=== PATIENT | male | born 1955 | race Caucasian/White ===

== ENCOUNTER 2019-12-29 15:38 | Emergency (ER) | payer MEDICARE, OTHER, SELFPAY ==
[2019-12-29 15:52] VITALS: BP 128/75; PULSE 79; RESP 16; TEMP 37.1; O2SAT 97
--- NOTE | 2019-12-29 15:57 | ED.SKABFB ---
HPI - Skin/Abscess/Foreign Bdy General Chief complaint: Skin/Abscess/Foreign Body Stated complaint: Cyst on back Time Seen by Provider: 12/29/19 15:55 Source: patient and RN notes reviewed Mode of arrival: ambulatory Limitations: no limitations History of Present Illness HPI narrative: Patient presents today with an infected cyst to his back x1 week. He has been on Augmentin since 12/23/2019, but states symptoms have continued to worsen. Currently rates his pain 3/10. Pain increases when he moves or lies supine. He has tried no medication for pain prior to arrival. He does report history of infected cyst in the past. Denies history of MRSA Related Data Home Medications Medication Instructions Recorded Confirmed C,E,zinc,copper 16-jjrdy2n-cts 1 cap PO DAILY 12/29/19 12/29/19 [Ocuvite Adult 50 Plus] amoxicillin-pot clavulanate 1 tablet PO BID 12/29/19 12/29/19 aspirin [Adult Low Dose Aspirin] 81 mg PO DAILY 12/29/19 12/29/19 bimatoprost [Lumigan] 0.01 % OPHTHALMIC (EYE) DIRECTED 12/29/19 12/29/19 dorzolamide 1 drp OPHTHALMIC (EYE) DAILY 12/29/19 12/29/19 ezetimibe 10 mg PO DAILY 12/29/19 12/29/19 jtgchfbeejb-fgxydblcz-tqlzcghc 1 inh INHALATION DIRECTED 12/29/19 12/29/19 [Trelegy Ellipta] furosemide 40 mg PO DAILY 12/29/19 12/29/19 lisinopril 20 mg PO DAILY 12/29/19 12/29/19 tbiceitr-amu-QY-lycopen-lutein 1 tablet PO DAILY 12/29/19 12/29/19 [Centrum Silver] omega 8-xle-ryr-fish oil [Fish Oil] 1 cap PO BID 12/29/19 12/29/19 omeprazole 20 mg PO DAILY 12/29/19 12/29/19 tamsulosin 0.4 mg PO DIRECTED 12/29/19 12/29/19 Allergies Allergy/AdvReac Type Severity Reaction Status Date / Time No Known Allergies Allergy Unverified 03/04/19 08:49 Review of Systems Review of Systems: Narrative: CONSTITUTIONAL: Denies body aches, fever, chills, or sweats. EYES: Denies visual changes, redness, or discharge. ENT: Denies rhinorrhea, congestion, sore throat, or otalgia. CARDIOVASCULAR: Denies chest pain, palpitations, or edema. RESPIRATORY: Denies cough or dyspnea. GASTROINTESTINAL: Denies abdominal pain, nausea, vomiting, or diarrhea. GENITOURINARY: Denies dysuria or hematuria. SKIN: Denies rash, itching. + Cyst to back. MUSCULOSKELETAL: Denies back pain, joint pain, or myalgia. NEUROLOGIC: Denies headache, numbness, tingling, or weakness. PSYCH: Denies depression or anxiety. [facility] Past Medical History Medical History (Updated 12/29/19 @ 16:17 by Mayte Fuentes, [employer]IVE [employer], ) Hypertension Comments At time of signature, I have reviewed and agree with nursing past medical, surgical, social and family history unless otherwise noted. Please see nursing chart for further information. There is no relevant family history pertinent to the presenting complaint Exam Narrative: Exam Narrative: GENERAL: Well-appearing, well-nourished, and in no acute distress. HEAD: Normocephalic, atraumatic. EYES: EOMI. No redness or drainage. Conjunctivae normal. ENT: Mucous membranes pink and moist. NECK: Normal AROM. . CHEST: No respiratory distress. EXTREMITIES: Normal range of motion. No edema. SKIN: Warm, dry, no rash. Capillary refill normal. Normal skin turgor. ~4cm round area of erythema and induration with central fluctuance. Tender to palpation. NEURO: No focal deficits. Alert and oriented x3. Gait steady. PSYCH: Normal affect. No signs of depression or anxiety. Course Vital Signs Vital signs: Vital Signs Temperature 98.7 F 12/29/19 15:52 Pulse Rate 79 12/29/19 15:52 Respiratory Rate 16 12/29/19 15:52 Blood Pressure 128/75 12/29/19 15:52 Pulse Oximetry 97 12/29/19 15:52 Temperature 98.7 F 12/29/19 15:52 Pulse Rate 79 12/29/19 15:52 Respiratory Rate 16 12/29/19 15:52 Blood Pressure 128/75 12/29/19 15:52 Pulse Oximetry 97 12/29/19 15:52 Reviewed. Pt has been instructed to follow up with his PCP regarding his elevated blood pressure today. Procedures Abscess I/D back:
== END 2019-12-29 16:19 | disposition home or self-care (01) ==
PROVIDERS: Emergency Provider Nurse Practitioner; PCP Family Medicine Adolescent Medicine
DX: L02.212 Cutaneous abscess of back [any part, except buttock and flank] (principal); I10 Essential (primary) hypertension
CPT/HCPCS: 10060; 99212; G0463

== ENCOUNTER → 2020-07-28 11:57 | Outpatient (CLI) | payer MEDICARE, OTHER, SELFPAY ==
--- NOTE | ~2020-07-28 | MR_ITS ---
EXAMINATION: MR brain/brain stem wo con DATE: 07/28/2020 13:04 INDICATION: Loss of balance. TECHNIQUE: Magnetic resonance imaging (MRI) of the brain and brainstem was performed without intraven ous contrast. Sequences included sagittal and axial T1-weighted FSE, axial diffusion-weighted FS EPI, axial T2*-weighted GRE, axial T2-weighted FLAIR Propeller, and axial T2-weighted Propeller. Apparent diffusion coefficient (ADC) maps were created. COMPARISON: None. FINDINGS: There are scattered areas of nonspecific increased T2-weighted signal intensity in the cere bral white matter, which is within normal limits for the patient's age. There is no intracranial hemo rrhage, acute infarction, or abnormal intracranial mass lesion. The ventricles are normal in size. Th e orbits are normal. There is mild mucosal thickening in the paranasal sinuses. The mastoid air cells are normal. IMPRESSION: 1. Normal aging brain. Reviewed, dictated and finalized at location B. TRONIC CONSOLE DISPLAY OPERATOR IMPRESSION: 1. Normal aging brain.
== END ==
PROVIDERS: PCP Family Medicine Adolescent Medicine; Visit Provider Physician Assistant
DX: R26.9 Unspecified abnormalities of gait and mobility (principal)
CPT/HCPCS: 70551

== ENCOUNTER 2022-03-23 12:52 | Emergency (ER) | payer MEDICARE, OTHER, SELFPAY ==
[2022-03-23 12:59] VITALS: BP 132/75; PULSE 66; RESP 20; TEMP 36.9; O2SAT 99
--- NOTE | 2022-03-23 13:10 | ED.UPPEXIN ---
HPI - Extremity Injury (Upper) General Chief Complaint: Extremity Problem,Nontraumatic Stated Complaint: Finger Lt Hand Time Seen by Provider: 03/23/22 13:14 History of Present Illness HPI narrative: Khoa Coffey is a 66 yo male with PMH of gl;aucoma, COPD, hyperlipidemia,HTN, comes to [facility] with what he believes to be a splinter in his palmar side of his second finger left hand; I will erythema no fluctuance no obvious infection Related Data Home Medications Medication Instructions Recorded Confirmed aspirin 81 mg tablet,delayed 81 mg PO DAILY 12/29/19 03/23/22 release (Adult Low Dose Aspirin) bimatoprost 0.01 % eye drops 0.01 % ophthalmic (eye) DIRECTED 12/29/19 03/23/22 (Lumigan) dorzolamide 2 % eye drops 1 drp ophthalmic (eye) DAILY 12/29/19 03/23/22 wanzhqys-fhr-yjxmy acid 0.4 1 tablet PO DAILY 12/29/19 03/23/22 mg-lycopene 300 mcg-lutein 250 mcg tablet (Centrum Silver) omega 6-yoa-fok-fish oil 1,000 mg 1 cap PO BID 12/29/19 03/23/22 (120 mg-180 mg) capsule (Fish Oil) tamsulosin 0.4 mg capsule 0.4 mg PO DIRECTED 12/29/19 03/23/22 vit C,E,zinc,copper-vucfr5r 250 1 cap PO DAILY 12/29/19 03/23/22 mg-lutein 5 mg-zeaxanthin 1 mg capsule (Ocuvite Adult 50 Plus) albuterol sulfate 90 mcg/actuation 1 puff inhalation Q4H PRN 01/19/22 03/23/22 aerosol inhaler (ProAir HFA) Shortness Of Breath Or Wheezing fluticasone fur. 100 mcg-umeclid 2 inh inhalation DAILY 03/23/22 03/23/22 62.5 mcg-vilant 25 mcg inhalat.powder (Trelegy Ellipta) Allergies Allergy/AdvReac Type Severity Reaction Status Date / Time No Known Allergies Allergy Verified 03/23/22 13:04 Review of Systems Review of Systems: CONSTITUTIONAL: Denies fever, chills, sweats. EYES: Denies visual changes, redness, discharge. ENT: Denies rhinorrhea, congestion, sore throat, otalgia. CARDIOVASCULAR: Denies chest pain, palpitations, edema. RESPIRATORY: Denies dyspnea, wheezing, cough GASTROINTESTINAL: Denies abdominal pain, nausea, vomiting, diarrhea. GENITOURINARY: Denies dysuria, hematuria, abnormal discharge SKIN: Denies rash or itching. NEUROLOGIC: Denies numbness, or focal weakness. PSYCHIATRIC: Denies anxiety or depression Small foreign object in second left finger, he feels a something is sticking him when he bends his finger PMFSH Past Medical History Medical History Essential (primary) hypertension Gastro-esophageal reflux disease without esophagitis Glaucoma HTN (hypertension) Mixed hyperlipidemia Surgical History Surgical History History of lumbar surgery (~2013) L4-5 decompression and fusion 2013 History of shoulder surgery (2000) 2001, Left arthroscopy and acromioplasty Family History Family History Father Acute myocardial infarction Mother Acute myocardial infarction Sibling Diabetes mellitus Sibling Diabetes mellitus Sibling Diabetes mellitus COPD (chronic obstructive pulmonary disease) Social History Social History Smoking status: Former smoker Tobacco type: cigarettes Second hand tobacco smoke exposure: No Smoking end date: 08/21/15 Alcohol intake: never Substance use: never Substance use type: does not use Gender identity (if verbalized by the patient): Male Sexual Orientation (if Verbalized by the Patient): Straight or Heterosexual Spiritual care concerns: No Agree to blood products: Yes Comments At time of signature, I agree with nursing past medical, surgical, social and family history. There is no relevant family history pertinent to the presenting complaint. Exam Narrative: GENERAL: This is a well-nourished, well-developed patient, in mild distress. HEAD: normocephalic, atraumatic. EYES: PERRL. Sclera clear/whit
[2022-03-23] MEDS: TETANUS,DIPHTHERIA,AC PERTUSSIS ADULT (0.5 ML) BOOSTRIX IM (13:44)
== END 2022-03-23 13:48 | disposition home or self-care (01) ==
PROVIDERS: Emergency Provider Nurse Practitioner; PCP Family Medicine Adolescent Medicine
DX: S61.241A Puncture wound with foreign body of left index finger without damage to nail, initial encounter (principal); W45.8XXA Other foreign body or object entering through skin, initial encounter; Z23 Encounter for immunization; I10 Essential (primary) hypertension; K21.9 Gastro-esophageal reflux disease without esophagitis; H40.9 Unspecified glaucoma; E78.2 Mixed hyperlipidemia; Z87.891 Personal history of nicotine dependence; J44.9 Chronic obstructive pulmonary disease, unspecified
CPT/HCPCS: 90471; 90715; 99213; G0463

== ENCOUNTER 2022-08-01 14:34 | Emergency (ER) | payer MEDICARE, OTHER, SELFPAY ==
[2022-08-01 14:47] VITALS: BP 130/77; PULSE 82; RESP 18; TEMP 36.1; O2SAT 99
--- NOTE | 2022-08-01 15:07 | ED.GENADULT ---
HPI - General Adult General Chief complaint: Upper Respiratory Infection Stated complaint: Congestion,Cough,Headache History of Present Illness HPI narrative: 67 y/o male. PMHx HTN, GERD, Dyslipidemia. Presents to [facility] today with acute complaints of increased nasal congestion, purulent nasal discharge, as well as maxillary facial pressure for the past 72 hours. No fevers. No CAZARES, neck pain. No chest pain, cough, dyspnea, edema. He denies known ill contacts. Related Data Home Medications Medication Instructions Recorded Confirmed aspirin 81 mg tablet,delayed 81 mg PO DAILY 12/29/19 08/01/22 release (Adult Low Dose Aspirin) bimatoprost 0.01 % eye drops 0.01 % ophthalmic (eye) DIRECTED 12/29/19 08/01/22 (Lumigan) dorzolamide 2 % eye drops 1 drp ophthalmic (eye) DAILY 12/29/19 08/01/22 dradbvmg-bnu-xzlmw acid 0.4 1 tablet PO DAILY 12/29/19 08/01/22 mg-lycopene 300 mcg-lutein 250 mcg tablet (Centrum Silver) omega 2-afy-fyb-fish oil 1,000 mg 1 cap PO BID 12/29/19 08/01/22 (120 mg-180 mg) capsule (Fish Oil) vit C,E,zinc,copper-dhacx2f 250 1 cap PO DAILY 12/29/19 08/01/22 mg-lutein 5 mg-zeaxanthin 1 mg capsule (Ocuvite Adult 50 Plus) albuterol sulfate 90 mcg/actuation 1 puff inhalation Q4H PRN 01/19/22 08/01/22 aerosol inhaler (ProAir HFA) Shortness Of Breath Or Wheezing fluticasone fur. 100 mcg-umeclid 2 inh inhalation DAILY 03/23/22 08/01/22 62.5 mcg-vilant 25 mcg inhalat.powder (Trelegy Ellipta) Allergies Allergy/AdvReac Type Severity Reaction Status Date / Time No Known Allergies Allergy Verified 08/01/22 14:40 Review of Systems Review of Systems: CONSTITUTIONAL: Denies fever, chills, sweats. EYES: Denies visual changes, redness, discharge. ENT: Positive rhinorrhea, congestion. No sore throat, otalgia. CARDIOVASCULAR: Denies chest pain, palpitations, edema. RESPIRATORY: Denies dyspnea, wheezing, cough GASTROINTESTINAL: Denies abdominal pain, nausea, vomiting, diarrhea. GENITOURINARY: Denies dysuria, hematuria, abnormal discharge SKIN: Denies rash or itching. MUSCULOSKELETAL: Denies acute back pain, joint pain, or myalgia. NEUROLOGIC: Denies numbness, or focal weakness. PSYCHIATRIC: Denies anxiety or depression. [facility] Past Medical History Medical History Essential (primary) hypertension Gastro-esophageal reflux disease without esophagitis Glaucoma HTN (hypertension) Mixed hyperlipidemia Surgical History Surgical History History of lumbar surgery (~2013) L4-5 decompression and fusion 2013 History of shoulder surgery (2000) 2001, Left arthroscopy and acromioplasty Family History Family History Father Acute myocardial infarction Mother Acute myocardial infarction Sibling Diabetes mellitus Sibling Diabetes mellitus Sibling Diabetes mellitus COPD (chronic obstructive pulmonary disease) Social History Social History Smoking status: Former smoker Tobacco type: cigarettes Second hand tobacco smoke exposure: No Smoking end date: 08/21/15 Alcohol intake: never Substance use: never Substance use type: does not use Gender identity (if verbalized by the patient): Male Sexual Orientation (if Verbalized by the Patient): Straight or Heterosexual Spiritual care concerns: No Agree to blood products: Yes Exam Narrative: GENERAL: This is a well-nourished, well-developed adult, in no apparent distress. HEAD: normocephalic, atraumatic. EYES: PERRL. Sclera clear/white. EARS: External ears normal, auditory canals clear and without drainage, TMs normal. NOSE: External nose normal. Positive Rhinorrhea, thick nasal congestion. No obstruction. THROAT: Mucous membranes moist, posterior ph
== END 2022-08-01 15:05 | disposition home or self-care (01) ==
PROVIDERS: Emergency Provider Nurse Practitioner Adult Health; PCP Family Medicine Adolescent Medicine
DX: J01.90 Acute sinusitis, unspecified (principal); I10 Essential (primary) hypertension; E78.2 Mixed hyperlipidemia; Z79.82 Long term (current) use of aspirin; Z87.891 Personal history of nicotine dependence
CPT/HCPCS: 99213; G0463

== ENCOUNTER 2022-10-06 08:53 | Outpatient (CLI) | payer MEDICARE, OTHER, SELFPAY ==
--- NOTE | 2022-10-06 09:28 | ECG_ITS ---
Measurements Intervals [place] Rate: 56 P: 5 KS: 161 QRS: 41 QRSD: 109 T: 39 QT: 404 QTc: 392 Interpretive Statements SINUS BRADYCARDIA NO PREVIOUS ECG AVAILABLE FOR COMPARISON Electronically Signed On 10-06-2022 14:55:23 INTERVENTIONAL TECH by Chas Brewer M.D.
[2022-10-06 10:27] LABS: Anion Gap 6 mmol/L (8-16); Blood Urea Nitrogen 26 mg/dL (9-20); Calcium 8.9 mg/dL (8.4-10.2); Carbon Dioxide 29 mmol/L (22-30); Chloride 101 mmol/L (98-107); Estimated Glomerular Filt Rate > 60; Glucose 107 mg/dL (65-110); Potassium 4.1 mmol/L (3.4-5.0); Sodium 136 mmol/L (137-145)
== END 2022-10-06 08:54 | disposition home or self-care (01) ==
PROVIDERS: PCP Family Medicine Adolescent Medicine; Visit Provider Anesthesiology
DX: Z01.818 Encounter for other preprocedural examination (principal)
CPT/HCPCS: 36415; 80048; 93005

== ENCOUNTER 2022-10-14 06:06 | Day surgery (SDC) | payer MEDICARE, OTHER, SELFPAY ==
[2022-10-05 10:17] VITALS: BMI 33.2
--- NOTE | 2022-10-13 12:26 | WPDANESEPPF ---
Anes - Initial Pre Proc Eval Procedure: Operation Date: 10/14/22 09:00 Proposed Procedures p Arthrodesis First Metatarsophalangeal Joint Left Foot - Jair Cruz JR, MD Date/Time: 10/13/22 12:26 Surgeon: Jair Cruz JR, MD Pre Op Diagnosis: Arthritis First Metarasophalangeal Joint Left Foot Patient Data Age: 67 Gender: M Height: 1.75 m Weight: 102 kg Allergies Allergy/AdvReac Type Severity Reaction Status Date / Time No Known Allergies Allergy Verified 10/14/22 08:16 Home Medications Medication Instructions Recorded Confirmed Type aspirin 81 mg tablet,delayed 81 mg PO DAILY 12/29/19 10/14/22 History release (Adult Low Dose Aspirin) bimatoprost 0.01 % eye drops 0.01 % ophthalmic (eye) DIRECTED 12/29/19 10/14/22 History (Lumigan) dorzolamide 2 % eye drops 1 drp ophthalmic (eye) DAILY 12/29/19 10/14/22 History ebsoytbx-njc-sqxty acid 0.4 1 tablet PO DAILY 12/29/19 10/14/22 History mg-lycopene 300 mcg-lutein 250 mcg tablet (Centrum Silver) omega 5-ght-unz-fish oil 1,000 mg 1 cap PO BID 12/29/19 10/14/22 History (120 mg-180 mg) capsule (Fish Oil) vit C,E,zinc,copper-cvdbn2x 250 1 cap PO DAILY 12/29/19 10/14/22 History mg-lutein 5 mg-zeaxanthin 1 mg capsule (Ocuvite Adult 50 Plus) lisinopril 20 mg tablet 20 mg PO DAILY #90 tabs 11/16/21 10/14/22 Rx omeprazole 20 mg capsule,delayed See Rx Instructions .Route 01/05/22 10/14/22 Rx release .COMPLEX #90 caps ezetimibe 10 mg tablet 10 mg PO DAILY #90 tabs 01/10/22 10/14/22 Rx albuterol sulfate 90 mcg/actuation 1 puff inhalation Q4H PRN 01/19/22 10/14/22 History aerosol inhaler (ProAir HFA) Shortness Of Breath Or Wheezing fluticasone fur. 100 mcg-umeclid 2 inh inhalation DAILY 03/23/22 10/14/22 History 62.5 mcg-vilant 25 mcg inhalat.powder (Trelegy Ellipta) furosemide 40 mg tablet 40 mg PO DAILY #90 tabs 03/28/22 10/14/22 Rx rosuvastatin 5 mg tablet 5 mg PO DAILY #90 tabs 03/28/22 10/14/22 Rx tamsulosin 0.4 mg capsule 0.4 mg PO DAILY #90 caps 07/20/22 10/14/22 Rx finasteride 5 mg tablet 5 mg PO DAILY 10/05/22 10/14/22 History Patient hx anesthesia problems: none Family hx anesthesia problems: none Results Review: All pre-operative results and documents have been reviewed as part of the pre-operative evaluation. [facility] Past Medical History Medical History Essential (primary) hypertension Gastro-esophageal reflux disease without esophagitis Glaucoma HTN (hypertension) Mixed hyperlipidemia Surgical History Surgical History History of lumbar surgery (~2013) L4-5 decompression and fusion 2013 History of shoulder surgery (2000) 2001, Left arthroscopy and acromioplasty Family History Family History Father Acute myocardial infarction Mother Acute myocardial infarction Sibling Diabetes mellitus Sibling Diabetes mellitus Sibling Diabetes mellitus COPD (chronic obstructive pulmonary disease) Social History Social History Smoking status: Never smoker Tobacco type: cigarettes Second hand tobacco smoke exposure: No Smoking end date: 08/21/15 Alcohol intake: never Substance use: never Substance use type: does not use Living arrangements: with family Occupation/Education: retired Gender identity (if verbalized by the patient): Male Sexual Orientation (if Verbalized by the Patient): Straight or Heterosexual Spiritual care concerns: No Agree to blood products: Yes Anes - Eval Final PreProcedure Day of Procedure 10/13/22 12:26 Patient weight: obese Heart: regular rate and rhythm Lungs: clear to auscultation Airway: Mallampati scale class II Neurological: alert and oriented Last oral intake: >/= 8 hours ASA classification: II
[2022-10-14] VITALS (8 sets, daily range): BP systolic 115–137; BP diastolic 71–87; PULSE 60–74; RESP 14–18; TEMP 36.7–36.8; O2SAT 93–98; BMI 33.4
--- NOTE | ~2022-10-14 | XR_ITS ---
EXAMINATION: XR surgery orthopedic DATE: 10/14/2022 10:24 INDICATION: Left first metatarsophalangeal arthrodesis TECHNIQUE: 3 fluoroscopic images of the left forefoot were obtained during procedure performed by Dr. Cruz. Radiologist was not present for the imaging or procedure. Total DAP was 5.41 mGycm^2 COMPARISON: None. FINDINGS: Images demonstrate a left first metatarsophalangeal arthrodesis with plate and screw fixation. Alignm ent appears near anatomic. No fractures. Remaining joint spaces are unremarkable. IMPRESSION: 1. Instrumented first metatarsophalangeal arthrodesis, negative for postoperative purposes. Reviewed, dictated and finalized at location A. ARINE CHURN OPERATOR IMPRESSION: 1. Instrumented first metatarsophalangeal arthrodesis, negative for postoperati ve purposes.
--- NOTE | 2022-10-14 07:21 | WPDHPUPDATE1 ---
History and Physical Update Update Date/Time: 10/14/22 07:21 History and Physical has been reviewed, including an updated exam of the patient. There are NO changes in the patient's condition. Risks, benefits, and alternatives have been discussed and questions answered. Patient agrees to proceed with procedure.
[2022-10-14] MEDS: LACTATED RINGERS 1,000 ML 30 ML IV CONT ×2 (08:40→10:33)
--- NOTE | 2022-10-14 08:58 | SUR.PREOP ---
DR ROY NOTIFIED THAT PT TOOK HIS LISINOPRIL TODAY AT 0630 WITH A SIP OF WATER.
--- NOTE | 2022-10-14 09:15 | WPDANESPNB ---
Anes - Peripheral Nerve Block Date/Time: 10/14/22 09:15 I have discussed with the patient/family/POA the placement of a peripheral nerve block for post-operative pain management, including associated risks, benefits, complications, and side effects. Alternative methods of post-operative analgesia were detailed. Questions were solicited and answers provided to the satisfaction of the patient/family/POA. Time-Out: A pre-procedural Time-Out was completed immediately before starting the procedure and confirmed: Patient Identification, Site, Procedure, Patient Position and the Availability of Requisite Equipment. Clinical Indications: Acute post-operative pain management requested by the operative surgeon. Nerve Block Insertion Note Anes-nerve block: posterior fossa sciatic left and other (saphenous block) Patient position: supine (for saphenous block) Skin prep: chlorhexidine Needle: 22 gauge, stimulating, insulated echogenic needle. Needle length: 80 mm Technique: nerve stimulation lost at (mA) (for popliteal lost at 0.3) and ultrasound Injectate: bupivacaine 0.5% with epi 5 mcg/ml (20 mL for popliteal, 10 mL for adductor canal (no epi)) Observations: tolerated well Complications: none Procedure start time:: 906 Procedure end time:: 913
[2022-10-14] MEDS: ceFAZolin SODIUM 2 GM/20 ML SW SYRINGE IV PUSH (09:18)
--- NOTE | 2022-10-14 10:52 | SUR.PHASEI ---
1033- ice pack applied behind left knee-covered in pillow case-pt states zero pain to left foot- resting comfortably
--- NOTE | 2022-10-14 10:53 | W.PM.PROC2 ---
Procedure Note - Detailed Date of Procedure 10/14/22 Pre-op Diagnosis Arthritis First metarasophalangeal joint left Foot Post-op Diagnosis Same Procedure Performed Arthrodesis of the first metatarsal phalangeal joint left foot Surgeon Jair Cruz JR, BRODERICK Anesthesia General and Regional (Popliteal fossa block) Indications Painful left forefoot Description of Procedure PROCEDURE IN DETAIL: Under mild sedation, the patient was brought into the operating room, placed on the operating table in supine position. A pneumatic ankle tourniquet was placed about the patient's ipsilateral ankle. Following general anesthesia, and a prior popliteal fossa block, the foot was then scrubbed, prepped, and draped in the usual aseptic manner. An Esmarch bandage was then used to exsanguinate the patient's foot and the pneumatic ankle tourniquet was then inflated. Surgery began in the following manner: Attention was directed to the dorsal aspect of the 1st metatarsophalangeal joint where there was a large subcutaneous prominence noted along the dorsomedial aspect of the joint. The incision was made starting along the central shaft of the 1st metatarsal and extending just proximal to the interphalangeal joint of the hallux. The incision was continued deep down through the subcutaneous tissues using sharp and blunt dissection. All bleeders were cauterized as necessary. At this point, the dissection was continued down to the level of the periosteum and capsular structures overlying the 1st metatarsophalangeal joint. A full length periosteum and capsular incision was made just medial to the extensor hallucis longus tendon. The periosteum and capsular structures were freed from the base of the proximal phalanx as well as the distal 1st metatarsal. At this point, the 1st metatarsophalangeal joint was identified. There was almost complete loss of articular cartilage to the head of the 1st metatarsal as well as the base of the proximal phalanx. There was significant broadening and hypertrophy of the 1st metatarsophalangeal joint. Utilizing a sagittal bone saw, the hypertrophied 1st metatarsal was resected dorsally, medially, and laterally. A power bur was used to make sure that there were no rough edges and also to further debride the hypertrophic 1st metatarsal. Next, a rongeur was used to resect all hypertrophic base of the proximal phalanx. At this point, the reamer system for the [employer] CrossCHECK system was used to denude the degenerative cartilage from the head of the 1st metatarsal as well as the base of the proximal phalanx. The cartilage and subchondral bone were fully debrided utilizing the reamer system until healthy bleeding bone was noted. Next, a 2-0 drill bit was used to further fenestrate the head of the 1st metatarsal as well as the base of the proximal phalanx in order to allow fusion across the 1st metatarsophalangeal joint. Next, a 0.045 inch K-wire was driven from the medial aspect of the base of the proximal phalanx into the head of the 1st metatarsal in order to serve as temporary fixation. A large steel plate was used to make sure that the hallux was in a rectus position both in the sagittal plane as well as the frontal and transverse plane. Excellent position of the hallux was noted. Next, a CrossCHECK plate was placed atop the 1st metatarsophalangeal joint held in position with Metcalf wires. Utilizing standard principles and techniques, the 2 distal drill holes were drilled and two 3.5 mm mm fully-threaded locking screws were driven from dorsal to plantar holding the distal aspect of the plate intact. At this point, a 3.5mm lag screw was driven from dorsal distal to proximal plantar across the 1st metatarsophalangeal joint through the plate system with excellent compression noted after careful removal of the olive wire and temporary fixation from the 1st metatarsophalangeal joint. Next, 2 proximal drill holes were drilled
--- NOTE | 2022-10-14 11:24 | WPDANESPN ---
Anes - Prog Note Post-Op Date/Time: 10/14/22 11:24 Cardiovascular status: normal Respiratory status: normal Airway patency: baseline Mental status: baseline Post-Op hydration status: normal Vital Signs: Last Vital Signs Temp 36.7 C 10/14/22 10:33 Pulse 65 10/14/22 11:18 Resp 18 10/14/22 11:18 BP 128/71 10/14/22 11:18 Pulse Ox 93 10/14/22 11:18 O2 Del Method Room Air 10/14/22 11:18 O2 Flow Rate 8 10/14/22 10:33 Pain Score (VAS): 0 I/O: Intake & Output 10/13/22 10/14/22 10/14/22 23:59 07:59 15:59 Intake Total 50 Balance 50 Post-procedural complaints: none Patient Feedback: Patient satisfied with anesthetic care. Other Findings: Patient vital signs back to baseline. Patient denies nausea and vomiting. Patient's pain under control. Patient OK for discharge.
--- NOTE | 2022-10-14 11:29 | SUR.PHASEII ---
PT AWAKE AND ALERT. TALKATIVE WITH SPOUSE. DRINKING WATER. ASKING FOR COFFEE AND WHEN CAN HE GO HOME. DENIES PAIN OR NAUSEA AT THIS TIME.
--- NOTE | 2022-10-14 11:48 | SUR.PHASEII ---
PT AWAKE AND ALERT. DENIES PAIN. ASKING TO GO HOME. DRINKING COFFEE
== END 2022-10-14 12:10 | disposition home or self-care (01) ==
PROVIDERS: PCP Family Medicine Adolescent Medicine; Visit Provider Podiatrist Foot & Ankle Surgery
PROC: (CPT 28750; principal; 2022-10-14 09:00)
DX: M19.072 Primary osteoarthritis, left ankle and foot (principal)
CPT/HCPCS: 28750; 99199

== ENCOUNTER 2023-02-19 18:41 | Emergency (ER) | payer MEDICARE, OTHER, SELFPAY ==
--- NOTE | 2023-02-19 18:42 | ED.EAR ---
HPI - Ear Problem General Chief complaint: Ear Stated complaint: Lt Ear Irritation Time Seen by Provider: 02/19/23 18:42 Source: patient Mode of arrival: ambulatory Limitations: no limitations History of Present Illness HPI Narrative: Khoa is a 67-year-old male patient presenting to clinic today with complaints of left ear fullness and decreased hearing. He reports he does have a history of excessive cerumen. He denies any discomfort at this time. Thinks that he may need his ear cleaned out. Also complaining of sinus congestion. Related Data Home Medications Medication Instructions Recorded Confirmed aspirin 81 mg tablet,delayed 81 mg PO DAILY 12/29/19 02/19/23 release (Adult Low Dose Aspirin) bimatoprost 0.01 % eye drops 0.01 % ophthalmic (eye) DIRECTED 12/29/19 02/19/23 (Lumigan) dorzolamide 2 % eye drops 1 drp ophthalmic (eye) DAILY 12/29/19 02/19/23 cxrfdfov-vnf-igyjh acid 0.4 1 tablet PO DAILY 12/29/19 02/19/23 mg-lycopene 300 mcg-lutein 250 mcg tablet (Centrum Silver) omega 5-oln-dht-fish oil 1,000 mg 1 cap PO BID 12/29/19 02/19/23 (120 mg-180 mg) capsule (Fish Oil) vit C,E,zinc,copper-tgplb5h 250 1 cap PO DAILY 12/29/19 02/19/23 mg-lutein 5 mg-zeaxanthin 1 mg capsule (Ocuvite Adult 50 Plus) albuterol sulfate 90 mcg/actuation 1 puff inhalation Q4H PRN 01/19/22 02/19/23 aerosol inhaler (ProAir HFA) Shortness Of Breath Or Wheezing fluticasone fur. 100 mcg-umeclid 2 inh inhalation DAILY 03/23/22 02/19/23 62.5 mcg-vilant 25 mcg inhalat.powder (Trelegy Ellipta) finasteride 5 mg tablet 5 mg PO DAILY 10/05/22 02/19/23 Allergies Allergy/AdvReac Type Severity Reaction Status Date / Time colesevelam [From WelChol] AdvReac Intermediate Diarrhea Verified 02/19/23 18:43 niacin AdvReac Intermediate Flushing Verified 02/19/23 18:43 [From Niaspan Extended-Release] Review of Systems Review of Systems: Pertinent positives per HPI. Patient denies any fever, chills, rash, headache, visual changes, dizziness, cough, shortness of breath, chest pain, palpitations, nausea, vomiting, diarrhea, constipation, abdominal pain, or any urinary issues. REPLACED BY [facility] Past Medical History Medical History Essential (primary) hypertension Gastro-esophageal reflux disease without esophagitis Glaucoma HTN (hypertension) Mixed hyperlipidemia Surgical History Surgical History History of lumbar surgery (~2013) L4-5 decompression and fusion 2013 History of shoulder surgery (2000) 2000, Left arthroscopy and acromioplasty Family History Family History Father Acute myocardial infarction Mother Acute myocardial infarction Sibling Diabetes mellitus Sibling Diabetes mellitus Sibling Diabetes mellitus COPD (chronic obstructive pulmonary disease) Social History Social History Smoking status: Never smoker Tobacco type: cigarettes Second hand tobacco smoke exposure: No Smoking end date: 08/21/15 Alcohol intake: never Substance use: never Substance use type: does not use Lack of Transportation: No Lack of Food: Never True Current Housing: I Have Housing Concerned About Future Housing: No Difficulty Paying Gas/Electric Bills: No Difficulty Paying for Meds: No Currently Unemployed: No Education: High School Diploma/GED Difficulty w/ Childcare or Family Care: No Living arrangements: with family Occupation/Education: retired Gender identity (if verbalized by the patient): Male Sexual Orientation (if Verbalized by the Patient): Straight or Heterosexual Spiritual care concerns: No Agree to blood products: Yes Comments At the time of my signature, I reviewed and agree with the nursing past medical, mart
[2023-02-19 18:48] VITALS: BP 145/71; PULSE 79; RESP 18; TEMP 36.8; O2SAT 97
== END 2023-02-19 18:58 | disposition home or self-care (01) ==
PROVIDERS: Emergency Provider Nurse Practitioner Family; PCP Family Medicine Adolescent Medicine
DX: H61.23 Impacted cerumen, bilateral (principal); H69.92 Unspecified Eustachian tube disorder, left ear; I10 Essential (primary) hypertension; K21.9 Gastro-esophageal reflux disease without esophagitis; H40.9 Unspecified glaucoma; E78.2 Mixed hyperlipidemia; Z87.891 Personal history of nicotine dependence; Z79.82 Long term (current) use of aspirin
CPT/HCPCS: 69210; 99213; G0463

== ENCOUNTER 2023-05-12 07:06 | Day surgery (SDC) | payer MEDICARE, OTHER, SELFPAY ==
[2023-05-05 10:45] VITALS: BMI 33.2
--- NOTE | ~2023-05-12 | XR_ITS ---
XR surgery orthopedic DATE: 05/12/2023 10:44 INDICATION: Removal of first metatarsophalangeal arthrodesis hardware TECHNIQUE: 2 spot C-arm images of the forefoot 12.2 seconds fluoroscopy time 0.21 mGy COMPARISON: October 14, 2022 left foot spot C-arm surgery images FINDINGS: There is removal of plate and screws with the exception of 1 screw remnant is metatarsal he ad. IMPRESSION: Hardware removal Reviewed, dictated and finalized at [facility]. Reviewed, dictated and finalized at [facility]. IMPRESSION: Hardware removal
[2023-05-12 07:59] VITALS: BP 118/79; PULSE 62; RESP 18; TEMP 36.7; O2SAT 96
--- NOTE | 2023-05-12 08:26 | WPDHPUPDATE1 ---
History and Physical Update Update Date/Time: 05/12/23 08:26 History and Physical has been reviewed, including an updated exam of the patient. There are NO changes in the patient's condition. Risks, benefits, and alternatives have been discussed and questions answered. Patient agrees to proceed with procedure.
--- NOTE | 2023-05-12 08:45 | WPDANESEPPF ---
Anes - Initial Pre Proc Eval Procedure: Operation Date: 05/12/23 08:45 Proposed Procedures p Removal Deep Orthopedic Hardware Left Foot - Jair Cruz JR, MD Date/Time: 05/12/23 08:45 Surgeon: Jair Cruz JR, MD Pre Op Diagnosis: Painful Deep Orthopedic Hardware Left Foot Patient Data Age: 68 Gender: M Height: 1.75 m Weight: 103.8 kg Last Vital Signs Temp 36.7 C 05/12/23 07:59 Pulse 62 05/12/23 07:59 Resp 18 05/12/23 07:59 BP 118/79 05/12/23 07:59 Pulse Ox 96 05/12/23 07:59 O2 Del Method Room Air 05/12/23 07:59 Allergies Allergy/AdvReac Type Severity Reaction Status Date / Time colesevelam [From WelChol] AdvReac Intermediate Diarrhea Verified 05/12/23 07:24 niacin AdvReac Intermediate Flushing Verified 05/12/23 07:24 [From Niaspan Extended-Release] Home Medications Medication Instructions Recorded Confirmed Type aspirin 81 mg tablet,delayed 81 mg PO DAILY 12/29/19 05/12/23 History release (Adult Low Dose Aspirin) bimatoprost 0.01 % eye drops 0.01 % ophthalmic (eye) DIRECTED 12/29/19 05/12/23 History (Lumigan) dorzolamide 2 % eye drops 1 drp ophthalmic (eye) DAILY 12/29/19 05/12/23 History wieycciy-chm-btyfo acid 0.4 1 tablet PO DAILY 12/29/19 05/12/23 History mg-lycopene 300 mcg-lutein 250 mcg tablet (Centrum Silver) omega 0-mqz-cfl-fish oil 1,000 mg 1 cap PO BID 12/29/19 05/12/23 History (120 mg-180 mg) capsule (Fish Oil) vit C,E,zinc,copper-mhacc4r 250 1 cap PO DAILY 12/29/19 05/12/23 History mg-lutein 5 mg-zeaxanthin 1 mg capsule (Ocuvite Adult 50 Plus) ezetimibe 10 mg tablet 10 mg PO DAILY #90 tabs 01/10/22 05/12/23 Rx albuterol sulfate 90 mcg/actuation 1 puff inhalation Q4H PRN 01/19/22 05/12/23 History aerosol inhaler (ProAir HFA) Shortness Of Breath Or Wheezing tamsulosin 0.4 mg capsule 0.4 mg PO DAILY #90 caps 07/20/22 05/12/23 Rx finasteride 5 mg tablet 5 mg PO DAILY 10/05/22 05/12/23 History furosemide 40 mg tablet 40 mg PO DAILY #90 tabs 01/30/23 05/12/23 Rx lisinopril 20 mg tablet See Rx Instructions .Route 03/25/23 05/12/23 Rx .COMPLEX #90 tabs omeprazole 20 mg capsule,delayed See Rx Instructions .Route 03/25/23 05/12/23 Rx release .COMPLEX #90 caps rosuvastatin 5 mg tablet 5 mg PO DAILY #90 tabs 03/29/23 05/12/23 Rx fluticasone fur. 100 mcg-umeclid 1 inh inhalation DAILY #90 ea 04/05/23 05/12/23 Rx 62.5 mcg-vilant 25 mcg inhalat.powder (Trelegy Ellipta) Patient hx anesthesia problems: none Family hx anesthesia problems: none Results Review: All pre-operative results and documents have been reviewed as part of the pre-operative evaluation. PENDING SALE TO [facility] Past Medical History Medical History Essential (primary) hypertension Gastro-esophageal reflux disease without esophagitis Glaucoma HTN (hypertension) Mixed hyperlipidemia Surgical History Surgical History History of lumbar surgery (~2013) L4-5 decompression and fusion 2013 History of shoulder surgery (2000) 2001, Left arthroscopy and acromioplasty Family History Family History Father Acute myocardial infarction Mother Acute myocardial infarction Sibling Diabetes mellitus Sibling Diabetes mellitus Sibling Diabetes mellitus COPD (chronic obstructive pulmonary disease) Social History Social History Smoking status: Never smoker Tobacco type: cigarettes Second hand tobacco smoke exposure: No Smoking end date: 08/21/15 Alcohol intake: never Substance use: never Substance use type: does not use Lack of Transportation: No Lack of Food: Never True Current Housing: I Have Housing Concerned About Future Housing: No Difficulty Paying Gas/Electric Bills: No Difficult
--- NOTE | 2023-05-12 08:47 | WPDANESPN ---
Anes - Prog Note Post-Op Date/Time: 05/12/23 08:47 Cardiovascular status: normal Respiratory status: normal Airway patency: baseline Mental status: baseline Post-Op hydration status: normal Vital Signs: Last Vital Signs Temp 36.7 C 05/12/23 07:59 Pulse 62 05/12/23 07:59 Resp 18 05/12/23 07:59 BP 118/79 05/12/23 07:59 Pulse Ox 96 05/12/23 07:59 O2 Del Method Room Air 05/12/23 07:59 Pain Score (VAS): 0 Patient Feedback: Patient satisfied with anesthetic care.
[2023-05-12] MEDS: LACTATED RINGERS 1,000 ML 30 ML IV CONT (08:54)
[2023-05-12] MEDS: ceFAZolin SODIUM 2 GM/20 ML SW SYRINGE IV PUSH (10:07)
[2023-05-12] MEDS: LIDOCAINE HCL 2% LOCAL INJ 20 ML VIAL INFILTRATE (10:17)
--- NOTE | 2023-05-12 10:47 | W.PM.PROC2 ---
Procedure Note - Detailed Date of Procedure 05/12/23 Pre-op Diagnosis Painful Deep Orthopedic Hardware Left Foot Post-op Diagnosis Same Procedure Performed Removal of deep orthopedic hardware left foot Surgeon Jair rCuz JR, DPM Anesthesia MAC and Local Indications Painful fractured hardware left foot Description of Procedure Under mild sedation, the patient was brought in to the operating room, placed on the operating table in the supine position. A pneumatic ankle tourniquet was placed about the patient's leg. Following monitored anesthesia care, local anesthesia was obtained about the patients ankle utilizing 20 mL of a 1:1 mixture of 2% Lidocaine plain and 0.5% Marcaine plain. The foot was then scrubbed, prepped, and draped in the usual aseptic manner. An Esmarch bandage was then used to exsanguinate the patient's foot and the pneumatic calf tourniquet was then inflated. An incision was made along the dorsal aspect of the first metatarsal and base of the hallux, I excised the old incision. Dissection was continued to the subcutaneous tissues all bleeders were cauterized as necessary. A periosteal incision was made and the plate and screws were visualized. The dorsal lag screw was noted 5mm retrograded. The fractured screw and remaining locking screws and plate removed in toto and placed on the back table. Fluoroscopy was used to confirm complete screw removal. All but the fractured inferior aspect of the lag screw were noted to be removed confirmed with fluoroscopy. The wound site was flushed with sterile saline. Next, the capsule was reaproximated with 3-0 Vicryl next the subcutaneous fat layer skin was reapproximated with 4-0 Vicryl and the skin with 4-0 Monocryl in running subcuticular suture fashion technique. Upon completion of the procedure, the incision was dressed with Adaptic, 4x4s, Kerlix, and Coban. The pneumatic calf tourniquet was then deflated and a prompt hyperemic response was noted to all digits of the foot. The CAM Walker boot was then applied. The patient did very well with the procedure and the anesthesia. The patient was transferred to the recovery room with vital signs stable and vascular status intact to all toes of the foot. Following a period of postoperative monitoring, the patient will be discharged home on the following written and oral postoperative instructions: 1. The patient should keep the dressing clean, dry, and intact. Use a cast protector bag with showers. 2. The patient will be protected weightbearing with CAM boot. 3. Patient should ice and elevate the affected lower extremity while at rest. 4. The patient is to contact Dr. Cruz for all postop care and if any problems arise. 5. Prescriptions were written for Percocet 5/325 dispensed 40 to be taken 1 p.o. q.4-6 hours as needed for severe pain. Implants None Estimated Blood Loss 1 Drains No Packing No Pathology None sent Complications No immediate complications Condition Stable Disposition Same day
[2023-05-12 10:55] VITALS: BP 100/73; PULSE 65; RESP 16; O2SAT 95
[2023-05-12 11:10] VITALS: BP 114/67; PULSE 54; RESP 16; O2SAT 95
[2023-05-12 11:25] VITALS: BP 116/69; PULSE 58; RESP 15; O2SAT 98
== END 2023-05-12 11:55 | disposition home or self-care (01) ==
PROVIDERS: PCP Family Medicine Adolescent Medicine; Visit Provider Podiatrist Foot & Ankle Surgery
PROC: (CPT 20680; principal; 2023-05-12 08:45)
DX: T84.84XA Pain due to internal orthopedic prosthetic devices, implants and grafts, initial encounter (principal)
CPT/HCPCS: 20680; 99199

== ENCOUNTER 2024-05-17 10:00 | Emergency (ER) | payer MEDICARE, OTHER, SELFPAY ==
--- NOTE | ~2024-05-17 | XR_ITS ---
EXAMINATION: XR knee LT min 4V DATE: 05/17/2024 10:44 INDICATION: Posterior knee pain TECHNIQUE: Weight bearing anteroposterior and Ramos, sunrise, and flexed lateral views of the lef t knee were obtained COMPARISON: None. FINDINGS: Alignment is normal. No fracture. Joint spaces are normal with no osteophytosis. Small left knee smith nt effusion. Soft tissues are otherwise unremarkable. IMPRESSION: 1. Small left knee joint effusion with no acute osseous abnormality. Reviewed, dictated and finalized at location [facility].
--- NOTE | 2024-05-17 10:01 | ED.EXTPRO ---
HPI - Extremity Problem General Chief complaint: Extremity Problem,Nontraumatic Stated complaint: pain behind left knee Time Seen by Provider: 05/17/24 10:01 Source: patient Mode of arrival: ambulatory Limitations: no limitations History of Present Illness HPI Narrative: Khoa is a 69-year-old male patient presenting to the clinic today with complaints of pain behind the left knee that he notice yesterday around noon. Reports he is having pain with full flexion, extension of the knee, and bearing weight. Pain is to the posterior knee and radiates into the back of his left leg. No fever, redness, or erythema. Related Data Home Medications Medication Instructions Recorded Confirmed aspirin 81 mg tablet,delayed 81 mg PO DAILY 12/29/19 05/17/24 release (Adult Low Dose Aspirin) bimatoprost 0.01 % eye drops 0.01 % ophthalmic (eye) DIRECTED 12/29/19 02/08/24 (Lumigan) dorzolamide 2 % eye drops 1 drp ophthalmic (eye) DAILY 12/29/19 02/08/24 flgxyjrg-htc-hcuit acid 0.4 1 tablet PO DAILY 12/29/19 05/17/24 mg-lycopene 300 mcg-lutein 250 mcg tablet (Centrum Silver) omega 1-cpw-tnk-fish oil 1,000 mg 1 cap PO BID 12/29/19 05/17/24 (120 mg-180 mg) capsule (Fish Oil) vit C,E,zinc,copper-bdnpe8v 250 1 cap PO DAILY 12/29/19 02/08/24 mg-lutein 5 mg-zeaxanthin 1 mg capsule (Ocuvite Adult 50 Plus) albuterol sulfate 90 mcg/actuation 1 puff inhalation Q4H PRN 01/19/22 05/17/24 aerosol inhaler (ProAir HFA) Shortness Of Breath Or Wheezing finasteride 5 mg tablet 5 mg PO DAILY 10/05/22 05/17/24 Allergies Allergy/AdvReac Type Severity Reaction Status Date / Time colesevelam [From WelChol] AdvReac Intermediate Diarrhea Verified 05/17/24 10:31 niacin AdvReac Intermediate Flushing Verified 05/17/24 10:31 [From Niaspan Extended-Release] Review of Systems Review of Systems: Pertinent positives per HPI. Patient denies any fever, chills, rash, headache, visual changes, dizziness, cough, runny nose, sore throat, shortness of breath, chest pain, palpitations, nausea, vomiting, diarrhea, constipation, abdominal pain, or any urinary issues. [facility] Past Medical History Medical History Essential (primary) hypertension Gastro-esophageal reflux disease without esophagitis (12/2023) Glaucoma HTN (hypertension) Mixed hyperlipidemia Surgical History Surgical History History of lumbar surgery (~2013) L4-5 decompression and fusion 2013 History of shoulder surgery (2000) 2001, Left arthroscopy and acromioplasty Family History Family History Father Acute myocardial infarction Mother Acute myocardial infarction Sibling Diabetes mellitus Sibling Diabetes mellitus Sibling Diabetes mellitus COPD (chronic obstructive pulmonary disease) Social History Social History Smoking status: Never smoker Tobacco type: cigarettes Second hand tobacco smoke exposure: No Smoking end date: 08/21/15 Alcohol intake: never Substance use: never Substance use type: does not use Lack of Transportation: No Lack of Food: Never True Current Housing: I Have Housing Concerned About Future Housing: No Difficulty Paying Gas/Electric Bills: No Difficulty Paying for Meds: No Currently Unemployed: No Education: High School Diploma/GED Difficulty w/ Childcare or Family Care: No Living arrangements: with family Occupation/Education: retired Gender identity (if verbalized by the patient): Male Sexual Orientation (if Verbalized by the Patient): Straight or Heterosexual Spiritual care concerns: No Agree to blood products: Yes Comments At the time of my signature, I reviewed and agree with the nursing past medical, surgical, social, and family hi
[2024-05-17 10:16] VITALS: BP 104/73; BP 96/75; PULSE 74; RESP 16; TEMP 36.6; O2SAT 98
== END 2024-05-17 10:55 | disposition home or self-care (01) ==
PROVIDERS: Emergency Provider Nurse Practitioner Family; PCP Family Medicine Adolescent Medicine
DX: M25.562 Pain in left knee (principal); Z87.891 Personal history of nicotine dependence; I10 Essential (primary) hypertension; K21.9 Gastro-esophageal reflux disease without esophagitis; H40.9 Unspecified glaucoma; E78.2 Mixed hyperlipidemia; Z79.82 Long term (current) use of aspirin
CPT/HCPCS: 73564; 99213; G0463

== ENCOUNTER 2024-06-20 10:16 | Outpatient (CLI) | payer MEDICARE, OTHER, SELFPAY ==
--- NOTE | ~2024-06-20 | MR_ITS ---
MRI of the left knee Clinical history: Pain Technique: Coronal proton density and proton density-weighted images, sagittal proton-density and T2 fat-sat images, and axial proton-density fat-saturated images were acquired. Findings: Anterior and posterior cruciate ligaments are intact. Medial collateral ligament and the la teral collateral ligament complex are intact. Popliteus tendon is intact. Medial and lateral menisci are intact, without evidence of tear. There is mild chondromalacia patella. There is moderate to high-grade patchy chondromalacia of the fe moral trochlea. There is minimal chondral thinning at the medial lateral joint lines. Extensor mechanism is intact. Small to moderate joint effusion and small Alonso's cyst are present. Th ere is minimal amorphous edema in the tibialis anterior muscle belly.. Impression: Degenerative change, as above. Small to moderate joint effusion and small Alonso's cyst. Minimal amorphous edema in the tibialis anterior muscle belly, which could reflect posttraumatic stra in or contusion. Reviewed, dictated and finalized at location . Impression: Degenerative change, as above. Small to moderate joint effusion and small Alonso's cyst. Minimal amorphous edema in the tibialis anterior muscle belly, which could refl ect posttraumatic strain or contusion.
== END 2024-06-20 10:17 | disposition home or self-care (01) ==
LOC: MICIMG 10:17
PROVIDERS: PCP Family Medicine Adolescent Medicine; Visit Provider Orthopaedic Surgery
DX: M25.462 Effusion, left knee (principal); M71.22 Synovial cyst of popliteal space [Baker], left knee; M17.12 Unilateral primary osteoarthritis, left knee
CPT/HCPCS: 73721

== ENCOUNTER → 2025-06-04 12:02 | Outpatient (CLI) | payer MEDICARE, OTHER, SELFPAY ==
--- NOTE | ~2025-06-04 | XR_ITS ---
[id number] Indication: M54.12 - Radiculopathy, cervical region few weeks no injury Comparison: None Findings: Grade 1 retrolisthesis of C4 on C5, no fracture is identified. Moderate to severe loss of disc height throughout. Soft tissues unremarkable Impression: No acute abnormality. Reviewed, dictated and finalized at location P. Impression: No acute abnormality.
--- NOTE | ~2025-06-04 | XR_ITS ---
XR thoracic spine 2V Indication: persistent pain of the spine with C7 radiculpathy 3-4 weeks Comparison: None Findings: The vertebral heights are intact. No fracture or subluxation. The disc heights are intact. Soft tissues unremarkable Impression: No acute abnormality. Reviewed, dictated and finalized at location [facility]. Impression: No acute abnormality.
== END ==
LOC: EXPCRAD 12:04
PROVIDERS: PCP Nurse Practitioner Family; Visit Provider Nurse Practitioner Family
DX: M54.12 Radiculopathy, cervical region (principal); M54.6 Pain in thoracic spine
CPT/HCPCS: 72040; 72070